=== PATIENT | female | born 1960 | race Asian ===

== ENCOUNTER 2023-12-09 10:13 | Emergency (ER) | payer BC ==
[~2023-12-09] VITALS: Ht 160 cm; Wt 80.5 kg
[2023-12-09 14:58] VITALS: BP 150/80; PULSE 72; RESP 15; TEMP 97.6; O2SAT 99
== END 2023-12-09 14:35 | disposition home or self-care (01) ==
LOC: ER 10:14
DX: R60.0 Localized edema (principal); M25.571 Pain in right ankle and joints of right foot
CPT/HCPCS: 73610; 93971; 99284